=== PATIENT | male | born 1965 | race Caucasian/White ===

== ENCOUNTER 2016-09-06 10:25 | Emergency (ER) | payer BC ==
[2016-09-06 10:47] VITALS: RESP 16
--- NOTE | 2016-09-06 11:10 | ED ---
Male Urogenital HPI - General Chief complaint: Urogenital Stated complaint: cant urinate Time Seen by Provider: 09/06/16 10:53 Source: patient, RN notes reviewed Mode of arrival: wheelchair Limitations: no limitations - History of Present Illness Initial comments: 51-year-old male presents emergency Department chief complaint unable to urinate. Patient states he has not urinated well since last night. He states the dizziness hour and had small amount come out. Patient states that he's had intense lower abdominal symptoms feeling that he needs to urinate. Patient denies fever, chills, chest pain or shortness breath. Patient states that he was prepping for a colonoscopy last night. Patient states is scheduled at 1:00 today. Patient states that he felt very good bowel movements. States his waves of pain in his lower abdomen have continued. He states he feels that he is having problems with his prostate. - Related Data Home Medications Medication Instructions Recorded Confirmed Lisinopril [Lisinopril] 40 mg PO DAILY@1200 05/12/15 09/06/16 Polyethylene Glycol 3350 [Miralax] 17 gm PO BID PRN 09/04/16 09/06/16 Tamsulosin [Flomax] 0.4 mg PO DAILY 09/04/16 09/06/16 Bisac/NaCl/Nahco3/KCl/Peg 3350 1 kit PO ONCE PRN 09/06/16 09/06/16 [Gavilyte-H and Bisacodyl Kit] Previous Rx's Medication Instructions Recorded Ciprofloxacin HCl [Cipro] 500 mg PO Q12HR #20 tablet 09/06/16 Phenazopyridine [Pyridium] 200 mg PO TID #6 tablet 09/06/16 Allergies Allergy/AdvReac Type Severity Reaction Status Date / Time No Known Allergies Allergy Verified 09/06/16 11:28 Review of Systems ROS Statement: Those systems with pertinent positive or pertinent negative responses have been documented in the HPI. ROS Other: All systems not noted in ROS Statement are negative. Past Medical History Past Medical History: Hypertension, Liver Disease, Prostate Disorder, Skin Disorder Additional Past Medical History / Comment(s): CIRRHOSIS, BPH, PSORIASIS, THROMBOCYTOPENIA. , CONSTIPATION. History of Any Multi-Drug Resistant Organisms: None Reported Additional Past Surgical History / Comment(s): wisdom teeth removal with MAC, colonoscopy, liver biopsy Past Anesthesia/Blood Transfusion Reactions: No Reported Reaction Past Psychological History: No Psychological Hx Reported Smoking Status: Never smoker Past Alcohol Use History: None Reported, Rare Additional Past Alcohol Use History / Comment(s): QUIT ALCOHOL 1 AND 1/2 YRS AGO. Past Drug Use History: None Reported - Past Family History Father Family Medical History: Cancer, Diabetes Mellitus Additional Family Medical History / Comment(s): MULTIPLE MYELOMA General Exam Limitations: no limitations General appearance: alert, in no apparent distress Head exam: Present: atraumatic, normocephalic, normal inspection Neck exam: Present: normal inspection, full ROM. Absent: tenderness, meningismus, lymphadenopathy Respiratory exam: Present: normal lung sounds bilaterally. Absent: respiratory distress, wheezes, rales, rhonchi, stridor Cardiovascular Exam: Present: regular rate, normal rhythm, normal heart sounds. Absent: systolic murmur, diastolic murmur, rubs, gallop, clicks GI/Abdominal exam: Present: soft, tenderness (Mild tenderness lower abdomen), normal bowel sounds. Absent: distended, guarding, rebound, rigid Back exam: Absent: CVA tenderness (R), CVA tenderness (L) Skin exam: Present: warm, dry, intact, normal color. Absent: rash Course Vital Signs 09/06/16 10:34 Temperature 98.1 F Pulse Rate 80 Respiratory 16 Rate Blood Pressure 120/73 O2 Sat by Pulse 97 Oximetry Medical Decision Making - Medical Decision Making 51-year-old male presented for low abdominal pain and urgency to urinate. CT does show severe mural thickening of the bladder wall. Patient may have a UTI though this is concerning for possible bladder cancer. I didn't of the patient admission. He states he wants to go have his colonoscopy and wants to be discharged at this time. Patient we discharged at end oh. I urged him that he absolutely needs to see urologist Dr. Hennessy and to follow-up with Dr. Travis in which she seen in the past for his thrombocytopenia and leukopenia. Patient agrees to plan. - Lab Data Result diagrams: 09/06/16 11:14 09/06/16 11:14 Lab Results 09/06/16 09/06/16 09/06/16 Range/Units 11:14 11:14 11:14 WBC 3.1 L (3.8-10.6) k/uL RBC 4.21 L (4.30-5.90) m/uL Hgb 12.1 L D (13.0-17.5) gm/dL Hct 36.6 L (39.0-53.0) % MCV 86.9 (80.0-100.0) fL MCH 28.8 (25.0-35.0) pg MCHC 33.1 (31.0-37.0) g/dL RDW 15.9 H (11.5-15.5) % Plt Count 37 L* D (150-450) k/uL Neutrophils % 66 % Lymphocytes % 23 % Monocytes % 7 % Eosinophils % 1 % Basophils % 1 % Neutrophils # 2.0 (1.3-7.7) k/uL Lymphocytes # 0.7 L (1.0-4.8) k/uL Monocytes # 0.2 (0-1.0) k/uL Eosinophils # 0.0 (0-0.7) k/uL Basophils # 0.0 (0-0.2) k/uL Manual Slide Review Performed RBC Morphology Normal Sodium 142 (137-145) mmol/L Potassium 4.7 (3.5-5.1) mmol/L Chloride 104 (98-107) mmol/L Carbon Dioxide 25 (22-30) mmol/L Anion Gap 13 mmol/L BUN 10 (9-20) mg/dL Creatinine 0.78 (0.66-1.25) mg/dL Est GFR (MDRD) Af Amer >60 (>60 ml/min/1.73 sqM) Est GFR (MDRD) Non-Af >60 (>60 ml/min/1.73 sqM) Glucose 101 H (74-99) mg/dL Calcium 9.7 (8.4-10.2) mg/dL Total Bilirubin 1.0 (0.2-1.3) mg/dL AST 55 (17-59) U/L ALT 67 (21-72) U/L Alkaline Phosphatase 80 (38-126) U/L Total Protein 8.2 (6.3-8.2) g/dL Albumin 4.5 (3.5-5.0) g/dL Urine Color Yellow Urine Appearance Cloudy (Clear) Urine pH 7.5 (5.0-8.0) Ur Specific [place] 1.021 (1.001-1.035) Urine Protein 3+ H (Negative) Urine Glucose (UA) Trace H (Negative) Urine Ketones Trace H (Negative) Urine Blood Moderate H (Negative) Urine Nitrate Negative (Negative) Urine Bilirubin Negative (Negative) Urine Urobilinogen <2.0 (<2.0) mg/dL Ur Leukocyte Esterase Trace H (Negative) Urine RBC >182 H (0-5) /hpf Urine WBC 32 H (0-5) /hpf Urine Mucus Rare H (None) /hpf Disposition Clinical Impression: Thrombocytopenia, UTI (urinary tract infection), Bladder wall thickening, Hematuria, Abdominal pain Disposition: HOME SELF-CARE Condition: Stable Instructions: Urinary Tract Infection in Men (ED) Additional Instructions: Please follow-up with urologist as discussed for your bladder wall thickening to rule out bladder cancer. 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 Prescriptions: Ciprofloxacin HCl [Cipro] 500 mg PO Q12HR #20 tablet Phenazopyridine [Pyridium] 200 mg PO TID #6 tablet Referrals: Juarez Kendrick MD [Primary Care Provider] - 1-2 days Galindo Hennessy MD [STAFF PHYSICIAN] - 1-2 days Josr Travis MD [STAFF PHYSICIAN] - 1-2 days Time of Disposition: 13:00
[2016-09-06] MEDS: SODIUM CHLORIDE 0.9% 1,000 ML IV STA (11:11)
[2016-09-06] MEDS: MORPHINE SULFATE 4 MG/ML SYRINGE IVP STA ×2 (11:18→12:00)
[2016-09-06 11:34] LABS: Appearance,Urine Cloudy (Clear); Bilirubin,Urine Negative (Negative); Glucose,Urine (UA) Trace (Negative); Ketones,Urine Trace (Negative); Leukocyte Esterase,Urine Trace (Negative); Mucus,Urine Rare /hpf; Nitrite,Urine Negative (Negative); PH, Urine 7.5 (5.0-8.0); Particle Count 5311; Protein,Urine 3+ (Negative); RBC,Urine >182 /hpf (0-5); Specific Gravity,Urine 1.021 (1.001-1.035); UA Billing (MACRO vs. MICRO) MICRO; Urobilinogen,Urine <2.0 mg/dL (<2.0); WBC,Urine 32 /hpf (0-5)
[2016-09-06 11:36] LABS: Basophils % (A) 1 %; CH 28.3; CHCM 32.6; Eosinophils % (A) 1 %; HCT 36.6 % (39.0-53.0); HDW 2.85; Luc # (Auto) 0.09; Luc % (Auto) 3; Lymphocytes # (A) 0.7 k/uL (1.0-4.8); Lymphocytes % (A) 23 %; MCH 28.8 pg (25.0-35.0); MCHC 33.1 g/dL (31.0-37.0); MCV 86.9 fL (80.0-100.0); Mean Platelet Volume 7.2; Monocytes # (A) 0.2 k/uL (0-1.0); Monocytes % (A) 7 %; Neutrophils % (A) 66 %; RBC 4.21 m/uL (4.30-5.90); RDW 15.9 % (11.5-15.5); WBC 3.1 k/uL (3.8-10.6); WBC (Perox) 3.01
[2016-09-06 11:42] LABS: ALT 67 U/L (21-72); AST 55 U/L (17-59); Alkaline Phosphatase 80 U/L (38-126); Anion Gap 13 mmol/L; Blood Urea Nitrogen 10 mg/dL (9-20); Calcium 9.7 mg/dL (8.4-10.2); Carbon Dioxide 25 mmol/L (22-30); Chloride 104 mmol/L (98-107); Glucose 101 mg/dL (74-99); Non-African American GFR(MDRD) >60 (>60 ml/min/1.73 sqM); Potassium 4.7 mmol/L (3.5-5.1); Sodium 142 mmol/L (137-145); Total Protein 8.2 g/dL (6.3-8.2)
--- NOTE | 2016-09-06 11:51 | XR ---
Abdomen HISTORY: Abdominal pain, unable to urinate From view of the abdomen correlated to prior abdomen and CT 02 July 2016 No interval change is evident. Lung bases are clear. No bowel obstruction or pneumoperitoneum. Probab le vascular calcifications within the pelvis. Spleen thought to be enlarged as described on prior CT. IMPRESSION: No acute abnormalities evident. Splenomegaly. See CT report 02 July 2016, abnormal bl adder noted
[2016-09-06 12:14] LABS: Manual Review Performed
[2016-09-06 12:16] LABS: RBC Morphology Normal
--- NOTE | 2016-09-06 12:28 | CT ---
EXAMINATION TYPE: CT abdomen pelvis wo con DATE OF EXAM: 09/06/2016 12:20 PM COMPARISON: 07/02/2016 HISTORY: Patient complains of penile pain and difficulty urinating. CT DLP: 542 mGycm FINDINGS: LUNG BASES: No evidence for nodule. No evidence for infiltrate. LIVER/GB: Small gallstone is noted. No space-occupying hepatic lesion. PANCREAS: No pancreatic mass identified. No inflammatory process seen. SPLEEN: No evidence for splenomegaly. No intrasplenic lesions seen. ADRENALS: No adrenal nodules identified. No evidence for thickening. KIDNEYS: No evidence for renal mass. No nephrolithiasis. No hydronephrosis. Severe urinary bladder wa ll thickening is noted diffusely throughout the urinary bladder. There is a perivesicular strandy att enuation identified. Small amount of air is seen within the lumen of the urinary bladder which may be secondary to recent catheterization. BOWEL: Appendix has a normal appearance. No evidence of bowel obstruction. No inflammatory process. Lymph nodes: No evidence for adenopathy greater than 1 cm. Abdominal aorta: Atheromatous changes seen. No evidence for aneurysm. Genital organs: There is bilateral thickening of the seminal vesicles. Prostate calcifications are id entified. Other: No significant abnormality. IMPRESSION: 1. SEVERE MURAL WALL THICKENING INVOLVING URINARY BLADDER MAY REFLECT UNDERLYING CYSTITIS. NEOPLASM I S NOT EXCLUDED. PERIVESICLE STRANDY ATTENUATION IS NOTED WELL. 2. Thickening is also noted of the seminal vesicles.
[2016-09-06] MEDS: DIAZEPAM 5 MG/ML 2 ML SYRINGE IVP STA (12:53)
[2016-09-06 13:07] VITALS: BP 120/68; PULSE 78; TEMP 97.8
[2016-09-06 16:30] LABS: HGB 12.1 gm/dL (13.0-17.5)
== END 2016-09-06 13:06 | disposition home or self-care (01) ==
LOC: EC 10:25
DX: N39.0 Urinary tract infection, site not specified (principal); D69.6 Thrombocytopenia, unspecified; R31.9 Hematuria, unspecified; Z79.899 Other long term (current) drug therapy; I10 Essential (primary) hypertension; N40.0 Benign prostatic hyperplasia without lower urinary tract symptoms; N32.89 Other specified disorders of bladder
CPT/HCPCS: 51798; 36415; 80053; 85025; 81001; 87086; 74000; 74176; 96374; 96375; 96376; 96361; 99284; J2270; J3360

== ENCOUNTER 2016-09-06 13:16 | Day surgery (SDC) | payer BC ==
[2016-09-04 09:40] VITALS: BMI 19.3
[~2016-09-06 13:16] MED LIST: LACTATED RINGERS 1,000 ML IV SCH; LIDOCAINE 1% 20 ML VIAL (10MG/ML) FOR IV START INTRADERMA PRN
[2016-09-06 13:35] VITALS: TEMP 97.9
[2016-09-06] MEDS ORDERED: PROPOFOL 10 MG/ML 20 ML VIAL IV ONE (13:48)
[2016-09-06 13:59] LABS: INR 1.3 (<1.1); Prothrombin Time 12.7 sec (9.0-12.0)
[2016-09-06 14:05] LABS: Bilirubin, Delta 0.4 mg/dL (0.0-0.2); Total Protein 8.1 g/dL (6.3-8.2)
[2016-09-06 14:16] VITALS: RESP 16
[2016-09-06 14:45] VITALS: BP 124/86; PULSE 72
--- NOTE | 2016-09-07 08:39 | PCN ---
DATE OF PROCEDURE: 09/06/2016 PROCEDURE: 1. Esophagogastroduodenoscopy. 2. Total colonoscopy. PREOPERATIVE DIAGNOSES: Epigastric pain, rectal bleeding and change in bowel habits. POSTOPERATIVE DIAGNOSES: 1. Gastritis consistent with portal gastropathy with no evidence of esophageal or gastric varices or bleeding. 2. Diverticulosis of the colon with no evidence of acute diverticulitis or strictures or any polyps. 3. Low-grade internal hemorrhoids without bleeding at the time of this exam. PREPARATION: HalfLytely prep. SEDATION: Provided by Anesthesia. BRIEF CLINICAL HISTORY: The patient is a 51-year-old male who was hospitalized last June because of rectal bleeding and anemia with a hemoglobin of 8. He was also having diarrhea which has since subsided. The patient had negative stool studies and CT of the abdomen was normal. The patient has had no rectal bleeding since that time. He was evaluated in the office earlier this month and schedule for these evaluations today. He has history of cryptogenic cirrhosis. His liver biopsy was done in May 2015 and his last MRI was in April 2015. He had prior upper endoscopy and colonoscopy in October 2013 and apparently he had a polyp removed from his colon. The patient was scheduled for this evaluation to assess for colon neoplasia and to evaluate for esophageal varices or other pathology. The patient has significant thrombocytopenia. PROCEDURE: With the patient on his left lateral decubitus position and after informed consent and adequate sedation, I passed the [id number] video upper endoscope through the cricopharyngeus down the esophagus. The esophagus appeared healthy with no obvious erosions, ulcers, mucosal tears, varices or bleeding. The endoscope was then passed into the stomach which was insufflated with air and inspected in detail including the retroflex view and the cardia. There was mottling, erythema and submucosal hemorrhage consistent with gastritis, likely portal gastropathy, but there was no bleeding, no gastric varices or any ulcers. Pyloric channel, duodenal bulb, postbulbar area, and descending duodenum appeared within normal limits. No biopsies were obtained. Then I proceeded with the colonoscopy. The perianal area did not show any fissures or fistulas. There were no masses felt on digital rectal examination. The Olympus CF-Q 160 L video colonoscope was then inserted in the rectum in the usual fashion and advanced to the cecum. There were multiple diverticular orifices seen scattered in the sigmoid and some on the right side. They were mostly small with no evidence of acute diverticulitis or strictures. No polyps or tumors were seen. I retroflexed the endoscope in the rectum before the endoscope was withdrawn. Low-grade internal hemorrhoids were noted, but there was no bleeding. The patient tolerated the procedure well. PLAN: The patient was reassured. He will follow up in the office next month as scheduled and he will follow up with you as planned. I anticipate repeating his colonoscopy in 5 years and his upper endoscopy in around 2 years. Will keep you updated on his progress.
== END 2016-09-06 15:16 | disposition home or self-care (01) ==
LOC: ORWHC2ENDO 13:16
DX: K29.70 Gastritis, unspecified, without bleeding (principal); K57.30 Diverticulosis of large intestine without perforation or abscess without bleeding; K64.8 Other hemorrhoids; Z86.010 Personal history of colon polyps; K74.69 Other cirrhosis of liver; D69.6 Thrombocytopenia, unspecified; I10 Essential (primary) hypertension; N40.0 Benign prostatic hyperplasia without lower urinary tract symptoms; Z79.2 Long term (current) use of antibiotics; Z79.899 Other long term (current) drug therapy
CPT/HCPCS: 80076; 85610; 82105; 82390; 45378; 43235; J2704; 36415; 51798; 74000; 74176; 80053; 81001; 85025; 87086; 96361; 96374; 96375; 96376; 99284

== ENCOUNTER 2017-07-03 14:44 | Emergency (ER) | payer BC ==
[2017-07-03] MEDS ORDERED: LIDOCAINE URO-JET JELLY 2% 5 ML KIT URETHRAL ONE (15:41)
--- NOTE | 2017-07-03 16:00 | ED ---
General Adult HPI - General Chief complaint: Abdominal Pain Stated complaint: Abd Pain Time Seen by Provider: 07/03/17 14:50 Source: patient, EMS, RN notes reviewed Mode of arrival: EMS Limitations: no limitations - History of Present Illness Initial comments: 52-year-old male presents to the emergency Department chief complaint of inability to urinate. Patient states he's been unable to go. He is a poor historian he is very focused on receiving pain medication. He states he just has a lot of pain he has a history of prostate issues. Other than and unable to give a history due to the patient's discomfort. Patient denies any fever chills nausea vomiting. - Related Data Home Medications Medication Instructions Recorded Confirmed Lisinopril [Lisinopril] 40 mg PO DAILY@1200 05/12/15 07/03/17 Tamsulosin [Flomax] 0.8 mg PO DAILY 09/04/16 07/03/17 Lactulose 10 gm PO BID 07/03/17 07/03/17 Allergies Allergy/AdvReac Type Severity Reaction Status Date / Time No Known Allergies Allergy Verified 07/03/17 15:36 Review of Systems ROS Statement: Those systems with pertinent positive or pertinent negative responses have been documented in the HPI. ROS Other: All systems not noted in ROS Statement are negative. Past Medical History Past Medical History: Hypertension, Liver Disease, Prostate Disorder, Skin Disorder Additional Past Medical History / Comment(s): CIRRHOSIS, BPH, PSORIASIS, THROMBOCYTOPENIA. , CONSTIPATION. History of Any Multi-Drug Resistant Organisms: None Reported Additional Past Surgical History / Comment(s): wisdom teeth removal with MAC, colonoscopy, liver biopsy Past Anesthesia/Blood Transfusion Reactions: No Reported Reaction Past Psychological History: No Psychological Hx Reported Smoking Status: Never smoker Past Alcohol Use History: None Reported, Rare Past Drug Use History: None Reported - Past Family History Father Family Medical History: Cancer, Diabetes Mellitus Additional Family Medical History / Comment(s): MULTIPLE MYELOMA General Exam Limitations: no limitations General appearance: alert, in no apparent distress ENT exam: Present: normal exam, mucous membranes moist Neck exam: Present: normal inspection. Absent: tenderness, meningismus, lymphadenopathy Respiratory exam: Present: normal lung sounds bilaterally. Absent: respiratory distress, wheezes, rales, rhonchi, stridor Cardiovascular Exam: Present: regular rate, normal rhythm, normal heart sounds. Absent: systolic murmur, diastolic murmur, rubs, gallop, clicks GI/Abdominal exam: Present: soft, distended (SUPRAPUBIC area), normal bowel sounds. Absent: tenderness, guarding, rebound, rigid Extremities exam: Present: normal inspection, full ROM, normal capillary refill. Absent: tenderness, pedal edema, joint swelling, calf tenderness Neurological exam: Present: alert, oriented X3 Psychiatric exam: Present: normal affect, normal mood Skin exam: Present: warm, dry, intact, normal color. Absent: rash Course Vital Signs 07/03/17 16:04 Temperature 98.6 F Pulse Rate 120 H Respiratory 20 Rate Blood Pressure 156/86 O2 Sat by Pulse 99 Oximetry Medical Decision Making - Medical Decision Making 52-year-old male presents to the emergency Department chief complaint of inability to urinate. This time the catheter was placed that did relieve some of his discomfort. At this time we are suspicious that this is most likely related to the urinary retention. Even though was mild. This time we discussed close follow-up with his doctor and return parameters. Patient stated he understood and is given plan. All questions have been answered. He will be discharged home. Lab values do appear to be stable compared to previous labs. - Lab Data Result diagrams: 07/03/17 16:27 07/03/17 16:27 Lab Results 07/03/17 07/03/17 07/03/17 Range/Units 16:10 16:27 16:27 WBC 2.7 L (3.8-10.6) k/uL RBC 3.90 L (4.30-5.90) m/uL Hgb 12.4 L (13.0-17.5) gm/dL Hct 37.3 L (39.0-53.0) % MCV 95.8 (80.0-100.0) fL MCH 31.7 (25.0-35.0) pg MCHC 33.1 (31.0-37.0) g/dL RDW 13.4 (11.5-15.5) % Plt Count 33 L* (150-450) k/uL Neutrophils % 73 % Lymphocytes % 20 % Monocytes % 5 % Eosinophils % 1 % Basophils % 0 % Neutrophils # 2.0 (1.3-7.7) k/uL Lymphocytes # 0.5 L (1.0-4.8) k/uL Monocytes # 0.1 (0-1.0) k/uL Eosinophils # 0.0 (0-0.7) k/uL Basophils # 0.0 (0-0.2) k/uL PT (9.0-12.0) sec INR (<1.2) APTT (22.0-30.0) sec Sodium 140 (137-145) mmol/L Potassium 4.0 (3.5-5.1) mmol/L Chloride 108 H (98-107) mmol/L Carbon Dioxide 21 L (22-30) mmol/L Anion Gap 11 mmol/L BUN 6 L (9-20) mg/dL Creatinine 0.70 (0.66-1.25) mg/dL Est GFR (MDRD) Af Amer >60 (>60 ml/min/1.73 sqM) Est GFR (MDRD) Non-Af >60 (>60 ml/min/1.73 sqM) Glucose 114 H (74-99) mg/dL Plasma Lactic Acid Jean (0.7-2.0) mmol/L Calcium 9.3 (8.4-10.2) mg/dL Total Bilirubin 1.1 (0.2-1.3) mg/dL AST 46 (17-59) U/L ALT 53 (21-72) U/L Alkaline Phosphatase 82 (38-126) U/L Total Protein 7.9 (6.3-8.2) g/dL Albumin 4.3 (3.5-5.0) g/dL Amylase 97 (30-110) U/L Urine Color Yellow Urine Appearance Clear (Clear) Urine pH 8.0 (5.0-8.0) Ur Specific [place] 1.003 (1.001-1.035) Urine Protein 1+ H (Negative) Urine Glucose (UA) Negative (Negative) Urine Ketones Negative (Negative) Urine Blood Large H (Negative) Urine Nitrite Negative (Negative) Urine Bilirubin Negative (Negative) Urine Urobilinogen <2.0 (<2.0) mg/dL Ur Leukocyte Esterase Negative (Negative) Urine RBC 2 (0-5) /hpf Urine WBC 2 (0-5) /hpf Urine Bacteria Rare H (None) /hpf Urine Mucus Rare H (None) /hpf 11/15/17 11/15/17 Range/Units 16:27 16:27 WBC (3.8-10.6) k/uL RBC (4.30-5.90) m/uL Hgb (13.0-17.5) gm/dL Hct (39.0-53.0) % MCV (80.0-100.0) fL MCH (25.0-35.0) pg MCHC (31.0-37.0) g/dL RDW (11.5-15.5) % Plt Count (150-450) k/uL Neutrophils % % Lymphocytes % % Monocytes % % Eosinophils % % Basophils % % Neutrophils # (1.3-7.7) k/uL Lymphocytes # (1.0-4.8) k/uL Monocytes # (0-1.0) k/uL Eosinophils # (0-0.7) k/uL Basophils # (0-0.2) k/uL PT 13.1 H (9.0-12.0) sec INR 1.3 H (<1.2) APTT 22.2 (22.0-30.0) sec Sodium (137-145) mmol/L Potassium (3.5-5.1) mmol/L Chloride (98-107) mmol/L Carbon Dioxide (22-30) mmol/L Anion Gap mmol/L BUN (9-20) mg/dL Creatinine (0.66-1.25) mg/dL Est GFR (MDRD) Af Amer (>60 ml/min/1.73 sqM) Est GFR (MDRD) Non-Af (>60 ml/min/1.73 sqM) Glucose (74-99) mg/dL Plasma Lactic Acid Jean 1.4 (0.7-2.0) mmol/L Calcium (8.4-10.2) mg/dL Total Bilirubin (0.2-1.3) mg/dL AST (17-59) U/L ALT (21-72) U/L Alkaline Phosphatase (38-126) U/L Total Protein (6.3-8.2) g/dL Albumin (3.5-5.0) g/dL Amylase (30-110) U/L Urine Color Urine Appearance (Clear) Urine pH (5.0-8.0) Ur Specific [place] (1.001-1.035) Urine Protein (Negative) Urine Glucose (UA) (Negative) Urine Ketones (Negative) Urine Blood (Negative) Urine Nitrite (Negative) Urine Bilirubin (Negative) Urine Urobilinogen (<2.0) mg/dL Ur Leukocyte Esterase (Negative) Urine RBC (0-5) /hpf Urine WBC (0-5) /hpf Urine Bacteria (None) /hpf Urine Mucus (None) /hpf - Radiology Data Radiology results: report reviewed, image reviewed Disposition Clinical Impression: Urinary retention Disposition: HOME SELF-CARE Condition: Stable Instructions: Urinary Retention in Men (ED) Additional Instructions: Please use medication as discussed. Please follow up with family doctor if symptoms have not improved over the next two days. Please return to the emergency room if your symptoms increase or worsen or for any other concerns. Referrals: Juarez Kendrick MD [Primary Care Provider] - 1-2 days Rodolfo Cunningham MD [STAFF PHYSICIAN] - 1-2 days Time of Disposition: 17:49
[2017-07-03] MEDS ORDERED: RX INFO: IV CONTRAST WAS GIVEN 1 EACH MISC MISCELLANE PRN (16:04)
[2017-07-03] MEDS ORDERED: SODIUM CHLORIDE 0.9% 500 ML IV STA (16:04)
[2017-07-03] MEDS ORDERED: HYDROmorphone 1 MG/ML 1 ML SYRINGE IVP STA (16:04)
[2017-07-03] MEDS ORDERED: ONDANSETRON 4 MG/2 ML VIAL IVP STA (16:05)
[2017-07-03 16:16] LABS: Appearance,Urine Clear (Clear); Bacteria,Urine Rare /hpf; Bilirubin,Urine Negative (Negative); Glucose,Urine (UA) Negative (Negative); Ketones,Urine Negative (Negative); Leukocyte Esterase,Urine Negative (Negative); Mucus,Urine Rare /hpf; Nitrite,Urine Negative (Negative); Particle Count 5705; Protein,Urine 1+ (Negative); RBC,Urine 2 /hpf (0-5); Specific Gravity,Urine 1.003 (1.001-1.035); UA Billing (MACRO vs. MICRO) MICRO; Urobilinogen,Urine <2.0 mg/dL (<2.0); WBC,Urine 2 /hpf (0-5)
[2017-07-03 16:40] LABS: Basophils % (A) 0 %; CH 33.1; CHCM 34.7; Eosinophils % (A) 1 %; HCT 37.3 % (39.0-53.0); HDW 2.92; HGB 12.4 gm/dL (13.0-17.5); Luc # (Auto) 0.03; Luc % (Auto) 1; Lymphocytes # (A) 0.5 k/uL (1.0-4.8); Lymphocytes % (A) 20 %; MCH 31.7 pg (25.0-35.0); MCHC 33.1 g/dL (31.0-37.0); MCV 95.8 fL (80.0-100.0); Mean Platelet Volume 8.1; Monocytes # (A) 0.1 k/uL (0-1.0); Monocytes % (A) 5 %; Neutrophils % (A) 73 %; RDW 13.4 % (11.5-15.5); WBC 2.7 k/uL (3.8-10.6); WBC (Perox) 2.72
[2017-07-03 16:49] LABS: ALT 53 U/L (21-72); AST 46 U/L (17-59); Alkaline Phosphatase 82 U/L (38-126); Amylase 97 U/L (30-110); Anion Gap 11 mmol/L; Blood Urea Nitrogen 6 mg/dL (9-20); Calcium 9.3 mg/dL (8.4-10.2); Carbon Dioxide 21 mmol/L (22-30); Chloride 108 mmol/L (98-107); Glucose 114 mg/dL (74-99); Non-African American GFR(MDRD) >60 (>60 ml/min/1.73 sqM); Sodium 140 mmol/L (137-145); Total Bilirubin 1.1 mg/dL (0.2-1.3); Total Protein 7.9 g/dL (6.3-8.2)
--- NOTE | 2017-07-03 17:24 | CT ---
EXAMINATION TYPE: CT abdomen pelvis w con DATE OF EXAM: 07/03/2017 COMPARISON: CT abdomen and pelvis September 06, 2016 HISTORY: Hematuria, abdominal pain CT DLP: 948 mGycm, Automated Exposure Control for Dose Reduction was Utilized. CONTRAST: CT scan of the abdomen and pelvis is performed without oral but with IV Contrast, patient injected wi th 100 mL of Omnipaque 300. FINDINGS: LUNG BASES: No significant abnormality is appreciated. LIVER/GB: Tiny dependent density is consistent with small gallstone unchanged from prior. PANCREAS: No significant abnormality is seen. SPLEEN: Splenomegaly is redemonstrated measuring 16.5 cm on long axis coronal image 45. ADRENALS: No significant abnormality is seen. KIDNEYS: De Anda catheter is seen within bladder which is decompressed and thus suboptimally evaluated. There is symmetric cortical medullary uptake and excretion from both kidneys without evidence of con cerning renal mass or hydronephrosis bilaterally. There are few pelvic phleboliths redemonstrated. BOWEL: Evaluation of bowel is suboptimal secondary to lack of enteric contrast. No suspicious small o r large bowel dilatation is seen. PROSTATE/SEMINAL VESICLES: No gross abnormality seen. LYMPH NODES: No greater than 1cm abdominal or pelvic lymph nodes are appreciated. OSSEOUS STRUCTURES: Osseous structures are slightly demineralized. Posterior disc herniation L4-L5 le nuha as seen on sagittal image 4 confirmed axial image 42 effacing anterior thecal sac. OTHER: No significant additional abnormality is seen. IMPRESSION: No significant finding is seen to account for patient's clinical symptoms. Suboptimal ev aluation of bladder due to catheterization. Marked splenomegaly is noted and may warrant further clin ical workup.
[2017-07-03 17:42] LABS: INR 1.3 (<1.2); Partial Thromboplastin Time 22.2 sec (22.0-30.0); Prothrombin Time 13.1 sec (9.0-12.0)
[2017-07-03 18:21] VITALS: BP 115/60; PULSE 50; RESP 18; TEMP 98.5
[2017-07-03] MEDS ORDERED: HYDROcodone/APAP 5-325MG 1 EACH TAB PO STA (18:22)
== END 2017-07-03 18:38 | disposition home or self-care (01) ==
LOC: EC 14:44
DX: R33.9 Retention of urine, unspecified (principal); I10 Essential (primary) hypertension; N42.9 Disorder of prostate, unspecified; Z79.899 Other long term (current) drug therapy
CPT/HCPCS: 36415; 80053; 82150; 83605; 85025; 85610; 85730; 81001; 87040; 87086; 74177; 99284; 96374; 96375; 96361 ×2; 51701; J2405; J1170; Q9967

== ENCOUNTER → 2019-09-07 | Outpatient (CLI) | payer BC ==
--- NOTE | 2019-09-07 21:20 | MR ---
EXAMINATION TYPE: MR liver wo/w con DATE OF EXAM: 09/07/2019 COMPARISON: CT scan 07/03/2017, MRI 05/05/2015 HISTORY: Cryptogenic Cirrhosis /Recheck CONTRAST: Standard multiplanar, multisequence MRI departmental protocol utilizing 6.5 mL intravenous Gadavist g adolinium contrast. FINDINGS: Exam limited by artifact. LIVER: The liver appears within normal limits in size. There is no suspicious intrahepatic mass or in trahepatic ductal dilatation seen. No worrisome rapidly enhancing mass with rapid washout is seen to suggest focal HCC. Hepatic veins are patent draining into IVC. There is patent portal vein centrally at level of danika hepatus. Liver is heterogeneous in signal pattern likely on the basis of chronic he patocellular disease. OTHER: The lung bases are grossly clear. Spleen remains mildly enlarged measuring 13 cm on long axis. There is trace pericholecystic fluid near gallbladder fundus redemonstrated. Tiny cholelithiasis aga in noted. The pancreas is felt upper limits of normal in size. Both adrenal glands are normal in size . There is no concerning renal mass or hydronephrosis present bilaterally. Subcentimeter hypodensitie s within both kidneys are too small to characterize. No concerning abdominal ascites is seen. No susp icious bowel dilatation is noted. Osseous structures are intact. IMPRESSION: 1. Diffuse heterogeneous pattern to the liver with splenomegaly in a pattern compatible with hepatic cirrhosis. No intrahepatic mass. 2. Cholelithiasis correlate clinically with ultrasound if there is concern for cholecystitis.
== END | disposition home or self-care (01) ==
LOC: RADMRIMAIN 14:48
PROVIDERS: ATTEND Physician Assistant
DX: R16.1 Splenomegaly, not elsewhere classified (principal)
CPT/HCPCS: 74183; A9585

== ENCOUNTER 2020-08-12 23:52 | Emergency (ER) | payer BC ==
[2020-08-13 00:01] VITALS: BP 135/79; RESP 18; TEMP 98.2
[2020-08-13] MEDS ORDERED: HYDROmorphone 0.5 MG/0.5 ML SYRINGE IVP STA ×2 (00:08→00:36)
--- NOTE | 2020-08-13 00:12 | ED ---
Abdominal Pain HPI - General Chief Complaint: Abdominal Pain Stated Complaint: GI Bleed Time Seen by Provider: 08/12/20 23:53 Source: patient, EMS Mode of arrival: EMS Limitations: no limitations - History of Present Illness Initial Comments: This patient is a 55-year-old man who presents with complaint that he is having suprapubic discomfort that radiates towards the groin. Patient states this has been intermittent going back for a few weeks now. Patient states that he was told that he had a urinary tract infection and did complete 2 courses of c iprofloxacin. The patient states that the pain was recurring tonight and it felt like he was having a hard time urinating. He did feel a little better after urinating but states that it is difficult to initiate. Patient is concerned about possible kidney stone. MD Complaint: abdominal pain -: hour(s) Location: suprapubic Radiation: other (groin) Migration to: no migration Severity: moderate Quality: aching Consistency: constant Improves With: other (Urination) Worsens With: nothing - Related Data Home Medications Medication Instructions Recorded Confirmed lisinopriL [Lisinopril] 40 mg PO DAILY@1200 05/12/15 07/03/17 Tamsulosin [Flomax] 0.8 mg PO DAILY 09/04/16 07/03/17 Lactulose 10 gm PO BID 07/03/17 07/03/17 Previous Rx's Medication Instructions Recorded Hydrocodone/Acetaminophen [[place] 1 each PO Q6HR PRN #20 tab 07/03/17 5-325] Doxycycline [Vibramycin] 100 mg PO BID 1 Days #28 capsule 08/13/20 Allergies Allergy/AdvReac Type Severity Reaction Status Date / Time No Known Allergies Allergy Verified 07/03/17 15:36 Review of Systems ROS Statement: Those systems with pertinent positive or pertinent negative responses have been documented in the HPI. ROS Other: All systems not noted in ROS Statement are negative. Constitutional: Denies: fever, chills, weakness Respiratory: Denies: cough, dyspnea Cardiovascular: Denies: chest pain, palpitations, orthopnea, edema, syncope Gastrointestinal: Reports: as per HPI, abdominal pain. Denies: nausea, vomiting, diarrhea, constipation, melena, hematochezia Genitourinary: Reports: as per HPI, urgency. Denies: dysuria, frequency, hematuria, discharge, testicular pain, testicular mass Musculoskeletal: Denies: back pain Skin: Denies: rash Neurological: Denies: headache, weakness, numbness Past Medical History Past Medical History: Hypertension, Liver Disease, Prostate Disorder, Skin Disorder Additional Past Medical History / Comment(s): CIRRHOSIS, BPH, PSORIASIS, THROMBOCYTOPENIA. , CONSTIPATION. History of Any Multi-Drug Resistant Organisms: None Reported Additional Past Surgical History / Comment(s): wisdom teeth removal with MAC, colonoscopy, liver biopsy Past Anesthesia/Blood Transfusion Reactions: No Reported Reaction Past Psychological History: No Psychological Hx Reported Smoking Status: Never smoker Past Alcohol Use History: None Reported, Rare Past Drug Use History: None Reported - Past Family History Father Family Medical History: Cancer, Diabetes Mellitus Additional Family Medical History / Comment(s): MULTIPLE MYELOMA General Exam Limitations: no limitations General appearance: alert, in no apparent distress Head exam: Present: atraumatic, normocephalic Eye exam: Present: normal appearance. Absent: scleral icterus, conjunctival injection ENT exam: Present: normal oropharynx Neck exam: Present: normal inspection Respiratory exam: Present: normal lung sounds bilaterally. Absent: respiratory distress, wheezes, rales, rhonchi, stridor Cardiovascular Exam: Present: regular rate, normal rhythm, normal heart sounds. Absent: systolic murmur, diastolic murmur, rubs, gallop GI/Abdominal exam: Present: soft. Absent: distended, tenderness, guarding, rebound, rigid, mass Extremities exam: Present: normal inspection, normal capillary refill. Absent: pedal edema, calf tenderness Back exam: Present: normal inspection. Absent: CVA tenderness (R), CVA tender ness (L) Neurological exam: Present: alert Skin exam: Present: warm, dry, intact, normal color. Absent: rash Course Vital Signs 08/12/20 08/13/20 23:54 02:29 Temperature 98.2 F Pulse Rate 100 89 Respiratory 18 18 Rate Blood Pressure 135/79 O2 Sat by Pulse 97 98 Oximetry Medical Decision Making - Medical Decision Making Patient's 55-year-old man presenting with suprapubic pain and is found to have evidence of infection urine. Suspect this is probably prostatitis and that he has had treatment failure with Cipro. Urine culture is sent and patient will be treated with doxycycline. He is feeling better here following medication. We discussed appropriate further care and follow-up as well as return parameters. - Lab Data Result diagrams: 08/13/20 00:18 08/13/20 00:18 Lab Results 08/13/20 08/13/20 08/13/20 Range/Units 00:18 00:18 00:18 WBC 2.5 L (3.8-10.6) k/uL RBC 3.28 L (4.30-5.90) m/uL Hgb 10.7 L (13.0-17.5) gm/dL Hct 30.1 L (39.0-53.0) % MCV 91.9 (80.0-100.0) fL MCH 32.6 (25.0-35.0) pg MCHC 35.5 (31.0-37.0) g/dL RDW 13.0 (11.5-15.5) % Plt Count 30 L (150-450) k/uL MPV 8.1 Neutrophils % 56 % Lymphocytes % 31 % Monocytes % 8 % Eosinophils % 2 % Basophils % 1 % Neutrophils # 1.4 (1.3-7.7) k/uL Lymphocytes # 0.8 L (1.0-4.8) k/uL Monocytes # 0.2 (0-1.0) k/uL Eosinophils # 0.1 (0-0.7) k/uL Basophils # 0.0 (0-0.2) k/uL Manual Slide Review Performed Sodium 137 (137-145) mmol/L Potassium 4.4 (3.5-5.1) mmol/L Chloride 109 H (98-107) mmol/L Carbon Dioxide 24 (22-30) mmol/L Anion Gap 4 mmol/L BUN 11 (9-20) mg/dL Creatinine 0.61 L (0.66-1.25) mg/dL Est GFR (CKD-EPI)AfAm >90 (>60 ml/min/1.73 sqM) Est GFR (CKD-EPI)NonAf >90 (>60 ml/min/1.73 sqM) Glucose 93 (74-99) mg/dL Plasma Lactic Acid Jean 1.6 (0.7-2.0) mmol/L Calcium 9.3 (8.4-10.2) mg/dL Total Bilirubin 1.1 (0.2-1.3) mg/dL AST 36 (17-59) U/L ALT 20 (4-49) U/L Alkaline Phosphatase 72 (38-126) U/L Total Protein 7.1 (6.3-8.2) g/dL Albumin 3.4 L (3.5-5.0) g/dL Amylase 119 H (30-110) U/L Lipase 282 (23-300) U/L Urine Color Urine Appearance (Clear) Urine pH (5.0-8.0) Ur Specific [place] (1.001-1.035) Urine Protein (Negative) Urine Glucose (UA) (Negative) Urine Ketones (Negative) Urine Blood (Negative) Urine Nitrite (Negative) Urine Bilirubin (Negative) Urine Urobilinogen (<2.0) mg/dL Ur Leukocyte Esterase (Negative) Urine RBC (0-5) /hpf Urine WBC (0-5) /hpf Urine Mucus (None) /hpf 08/13/20 Range/Units 00:27 WBC (3.8-10.6) k/uL RBC (4.30-5.90) m/uL Hgb (13.0-17.5) gm/dL Hct (39.0-53.0) % MCV (80.0-100.0) fL MCH (25.0-35.0) pg MCHC (31.0-37.0) g/dL RDW (11.5-15.5) % Plt Count (150-450) k/uL MPV Neutrophils % % Lymphocytes % % Monocytes % % Eosinophils % % Basophils % % Neutrophils # (1.3-7.7) k/uL Lymphocytes # (1.0-4.8) k/uL Monocytes # (0-1.0) k/uL Eosinophils # (0-0.7) k/uL Basophils # (0-0.2) k/uL Manual Slide Review Sodium (137-145) mmol/L Potassium (3.5-5.1) mmol/L Chloride (98-107) mmol/L Carbon Dioxide (22-30) mmol/L Anion Gap mmol/L BUN (9-20) mg/dL Creatinine (0.66-1.25) mg/dL Est GFR (CKD-EPI)AfAm (>60 ml/min/1.73 sqM) Est GFR (CKD-EPI)NonAf (>60 ml/min/1.73 sqM) Glucose (74-99) mg/dL Plasma Lactic Acid Jean (0.7-2.0) mmol/L Calcium (8.4-10.2) mg/dL Total Bilirubin (0.2-1.3) mg/dL AST (17-59) U/L ALT (4-49) U/L Alkaline Phosphatase (38-126) U/L Total Protein (6.3-8.2) g/dL Albumin (3.5-5.0) g/dL Amylase (30-110) U/L Lipase (23-300) U/L Urine Color Yellow Urine Appearance Clear (Clear) Urine pH 6.5 (5.0-8.0) Ur Specific [place] 1.009 (1.001-1.035) Urine Protein Negative (Negative) Urine Glucose (UA) Negative (Negative) Urine Ketones Negative (Negative) Urine Blood Moderate H (Negative) Urine Nitrite Negative (Negative) Urine Bilirubin Negative (Negative) Urine Urobilinogen <2.0 (<2.0) mg/dL Ur Leukocyte Esterase Moderate H (Negative) Urine RBC 29 H (0-5) /hpf Urine WBC 21 H (0-5) /hpf Urine Mucus Rare H (None) /hpf - EKG Data -: EKG Interpreted by Sd EKG shows normal: sinus rhythm, axis (Left axis deviation), intervals (Normal), QRS complexes (Normal) Rate: tachycardia (Rate 115 bpm) Interpretation: nonspecific ST-T wave changes Disposition Clinical Impression: Abdominal pain, Prostatitis Disposition: HOME SELF-CARE Condition: Good Instructions (If sedation given, give patient instructions): Urinary Tract Infection in Men (ED), Abdominal Pain (ED) Prescriptions: Doxycycline [Vibramycin] 100 mg PO BID 1 Days #28 capsule Is patient prescribed a controlled substance at d/c from ED?: No Referrals: Avni Riggins DO [Primary Care Provider] - 1-2 days
[2020-08-13 00:25] LABS: Basophils % (A) 1 %; Eosinophils # (A) 0.1 k/uL (0-0.7); Eosinophils % (A) 2 %; HCT 30.1 % (39.0-53.0); HGB 10.7 gm/dL (13.0-17.5); Lymphocytes # (A) 0.8 k/uL (1.0-4.8); Lymphocytes % (A) 31 %; MCH 32.6 pg (25.0-35.0); MCHC 35.5 g/dL (31.0-37.0); MCV 91.9 fL (80.0-100.0); Mean Platelet Volume 8.1; Monocytes # (A) 0.2 k/uL (0-1.0); Monocytes % (A) 8 %; Neutrophils # (A) 1.4 k/uL (1.3-7.7); Neutrophils % (A) 56 %; RBC 3.28 m/uL (4.30-5.90); WBC 2.5 k/uL (3.8-10.6)
[2020-08-13 00:41] LABS: Platelet Count 30 k/uL (150-450)
[2020-08-13 00:50] LABS: ALT 20 U/L (4-49); AST 36 U/L (17-59); African American GFR (CKD) >90 (>60 ml/min/1.73 sqM); Albumin 3.4 g/dL (3.5-5.0); Alkaline Phosphatase 72 U/L (38-126); Amylase 119 U/L (30-110); Anion Gap 4 mmol/L; Blood Urea Nitrogen 11 mg/dL (9-20); Calcium 9.3 mg/dL (8.4-10.2); Carbon Dioxide 24 mmol/L (22-30); Chloride 109 mmol/L (98-107); Glucose 93 mg/dL (74-99); Lipase 282 U/L (23-300); Non-African American GFR(CKD) >90 (>60 ml/min/1.73 sqM); Potassium 4.4 mmol/L (3.5-5.1); Sodium 137 mmol/L (137-145); Total Bilirubin 1.1 mg/dL (0.2-1.3); Total Protein 7.1 g/dL (6.3-8.2)
[2020-08-13 01:29] LABS: Appearance,Urine Clear (Clear); Bilirubin,Urine Negative (Negative); Blood,Urine Moderate (Negative); Color,Urine Yellow; Glucose,Urine (UA) Negative (Negative); Ketones,Urine Negative (Negative); Leukocyte Esterase,Urine Moderate (Negative); Mucus,Urine Rare /hpf; Nitrite,Urine Negative (Negative); PH, Urine 6.5 (5.0-8.0); Protein,Urine Negative (Negative); RBC,Urine 29 /hpf (0-5); Specific Gravity,Urine 1.009 (1.001-1.035); Urobilinogen,Urine <2.0 mg/dL (<2.0); WBC,Urine 21 /hpf (0-5)
--- NOTE | 2020-08-13 01:29 | CT ---
EXAM: CT Abdomen and Pelvis Without Intravenous Contrast CLINICAL HISTORY: ITS.REASON CT Reason: acute lower abdominal pain TECHNIQUE: Axial computed tomography images of the abdomen and pelvis without intravenous contrast. CTDI is 342 mGy and DLP is 6.77 mGy-cm. This CT exam was performed using one or more of the following dose reduction techniques: automated exposure control, adjustment of the mA and/or kV according to patient size, and/or use of iterative reconstruction technique. COMPARISON: September 06, 2016 FINDINGS: Lung bases: Unremarkable. No mass. No consolidation. ABDOMEN: Liver: Unremarkable. Gallbladder and bile ducts: There are multiple 5 mm gallstones in the dependent portion of the gallbladder. No biliary duct dilation nor pericholecystic inflammation is seen. Pancreas: Unremarkable. No ductal dilation. Spleen: The spleen is enlarged measuring 17.5 cm craniocaudad. Adrenals: Unremarkable. No mass. Kidneys and ureters: There is a nonobstructive 5 mm calyceal calculus in the upper pole of the left kidney. No hydronephrosis or ureterolithiasis is seen. Stomach and bowel: Unremarkable. No obstruction. No mucosal thickening. PELVIS: Appendix: The appendix is normal. Bladder: The urinary bladder is completely decompressed. The previously seen wall thickening is no longer visualized. No stones. Reproductive: Unremarkable as visualized. ABDOMEN and PELVIS: Intraperitoneal space: Unremarkable. No free air. No significant fluid collection. Bones/joints: Mild degenerative changes in the lumbar spine. No acute fracture or bone lesion is seen. No dislocation. Soft tissues: Unremarkable. Vasculature: There is a phlebolith inferior to the left ureterovesicular junction, unchanged. No abdominal aortic aneurysm. Lymph nodes: Unremarkable. No enlarged lymph nodes. IMPRESSION: No hydronephrosis or ureterolithiasis is seen. The urinary bladder is completely decompressed. The previously seen urinary bladder wall thickening is no longer visible. Cholelithiasis. No pericholecystic inflammation or biliary duct dilation is seen. Splenomegaly, increased since previous.
[2020-08-13] MEDS ORDERED: LEVOFLOXACIN 500 MG TAB PO STA (01:40)
[2020-08-13] MEDS ORDERED: DOXYCYCLINE 100 MG CAP PO STA (01:51)
[2020-08-13 02:30] VITALS: PULSE 89
== END 2020-08-13 02:38 | disposition home or self-care (01) ==
LOC: EC 23:52
DX: N41.9 Inflammatory disease of prostate, unspecified (principal); I10 Essential (primary) hypertension; N40.0 Benign prostatic hyperplasia without lower urinary tract symptoms; Z79.899 Other long term (current) drug therapy; Z98.890 Other specified postprocedural states
CPT/HCPCS: 99285; 96374; 96376; 36415; 80053; 82150; 83605; 83690; 85025; 81001; 87086; 74176; J1170

== ENCOUNTER → 2020-10-10 | Outpatient (CLI) | payer BC ==
--- NOTE | 2020-10-10 11:01 | XR ---
EXAMINATION TYPE: XR KUB DATE OF EXAM: 10/10/2020 Comparison: 09/06/2016 Clinical History: 55-year-old male N23.0, KUB Findings: Lung bases are clear. No evidence for free intraperitoneal air. No dilated small bowel or air-fluid levels. Scattered mild to moderate stool. Phlebolith within the left side of the pelvis. No suspicious calcification clearly identified. A De Anda catheter is in place. Impression: No evidence for free air or bowel obstruction. Mild to moderate stool burden. Indwelling De Anda cathet er.
== END | disposition home or self-care (01) ==
LOC: RADXRMAIN 10:35
PROVIDERS: ATTEND Urology
DX: R19.5 Other fecal abnormalities (principal)
CPT/HCPCS: 74018

== ENCOUNTER → 2020-11-16 | Outpatient (CLI) | payer BC ==
[2020-11-16 12:25] LABS: Mean Platelet Volume 7.8
[2020-11-16 12:32] LABS: Platelet Count 47 k/uL (150-450)
== END | disposition home or self-care (01) ==
LOC: LABPAT 10:57
PROVIDERS: ATTEND Hospitalist
DX: Z01.818 Encounter for other preprocedural examination (principal); K74.60 Unspecified cirrhosis of liver; D69.6 Thrombocytopenia, unspecified; R94.31 Abnormal electrocardiogram [ECG] [EKG]
CPT/HCPCS: 36415; 85049; 86850; 86900; 86901

== ENCOUNTER 2020-11-17 07:54 | Day surgery (SDC) | payer BC ==
[2020-11-14 11:58] VITALS: BMI 20.1
--- NOTE | 2020-11-16 12:14 | P.GSHP ---
History of Present Illness H&P Date: 11/13/20 Chief Complaint: Incomplete bladder emptying The patient is a 55-year-old white male with a long history of voiding dysfunction. He reported difficulty voiding in 2017 and underwent De Anda catheter placement at that time. Cystoscopy revealed an obstructing high median bar, and a transurethral incision of the prostate (TUIP) was considered. However, this was not performed due to thrombocytopenia. In the meantime, he has taken tamsulosin 0.8 mg daily. He underwent insertion of a De Anda catheter 10/05/2020 due to an inability to void. - Cardiovascular Cardiovascular: Reports high blood pressure - Gastrointestinal Gastrointestinal: Reports constipation - Genitourinary (Male) Genitourinary: Reports nocturia, Reports urinary hesitancy, Reports urinary retention, Denies hematuria - Psychiatric Psychiatric: Reports anxiety, Reports insomnia Past Medical History Past Medical History: Hypertension, Liver Disease, Prostate Disorder, Skin Disorder Additional Past Medical History / Comment(s): CIRRHOSIS, BPH, PSORIASIS, THROMBOCYTOPENIA. , CONSTIPATION. History of Any Multi-Drug Resistant Organisms: None Reported Additional Past Surgical History / Comment(s): wisdom teeth removal with MAC, colonoscopy, liver biopsy Past Anesthesia/Blood Transfusion Reactions: No Reported Reaction Past Psychological History: No Psychological Hx Reported Smoking Status: Never smoker Past Alcohol Use History: None Reported, Rare Past Drug Use History: None Reported - Past Family History Father Family Medical History: Cancer, Diabetes Mellitus Additional Family Medical History / Comment(s): MULTIPLE MYELOMA Medications and Allergies Home Medications Medication Instructions Recorded Confirmed Type lisinopriL [Lisinopril] 40 mg PO DAILY 05/12/15 11/14/20 History Tamsulosin [Flomax] 0.4 mg PO BID 09/04/16 11/14/20 History Levofloxacin [Levaquin] 500 mg PO DAILY 11/14/20 11/14/20 History Allergies Allergy/AdvReac Type Severity Reaction Status Date / Time No Known Allergies Allergy Verified 11/14/20 11:45 Surgical - Exam - General well developed, well nourished, no distress - Respiratory normal respiratory effort, clear to auscultation - Cardiovascular Rhythm: regular Abnormal Heart Sounds: no systolic murmur, no diastolic murmur, no rub, no S3 Gallop, no S4 Gallop, no click, no other - Abdomen Abdomen: soft, non tender, no guarding, no rigid, no rebound - Genitourinary normal penis with no external lesions, testicles non-tender - Rectum Rectum: normal sphincter tone, no masses, other (Prostate mildly enlarged, smooth) - Psychiatric oriented to time, oriented to person, oriented to place, speech is normal, memory intact Assessment and Plan (1) Benign prostatic hyperplasia with lower urinary tract symptoms Status: Acute Code(s): N40.1 - BENIGN PROSTATIC HYPERPLASIA WITH LOWER URINARY TRACT SYMP SNOMED Code(s): 848060662 Plan: Cystoscopy, TURP. The procedure has been reviewed in detail with the patient. He has been made aware of potential risks, which include anesthesia, infection, persistent voiding dysfunction, urinary incontinence, erectile dysfunction, retrograde ejaculation, and vesical neck contracture. He is aware that the procedure carries with it an increased risk of bleeding given his known thrombocytopenia.
[~2020-11-17 07:54] MED LIST changes: +DEXAMETHASONE SOD PHOSPHATE 4 MG/ML 1 ML VIAL IV ONE; +GENTAMICIN 80 MG in SODIUM CHLORIDE 0.9% 100 ML IVPB PRN; +HYDROmorphone 0.5 MG/0.5 ML SYRINGE IVP PRN; -LIDOCAINE 1% 20 ML VIAL (10MG/ML) FOR IV START INTRADERMA PRN; +ONDANSETRON 4 MG/2 ML VIAL IVP ONE
[2020-11-17 09:10] VITALS: RESP 16
[2020-11-17] MEDS ORDERED: LIDOCAINE 1% (10MG/ML) FOR IV START INTRADERMA ONE (09:15)
[2020-11-17] MEDS ORDERED: PROPOFOL 10 MG/ML 20 ML VIAL IV ONE (10:47)
[2020-11-17] MEDS ORDERED: LIDOCAINE 1% INJ 10MG/ML (20 ML MDV) ONE (10:47)
[2020-11-17] MEDS ORDERED: NEOSTIGMINE 1 MG/ML 10 ML VIAL ONE (10:47)
[2020-11-17] MEDS ORDERED: ESMOLOL 100 MG/10 ML VIAL ONE (10:47)
[2020-11-17] MEDS ORDERED: fentaNYL (PF) 50 MCG/ML 2 ML AMP ONE (10:47)
[2020-11-17] MEDS ORDERED: SUCCINYLCHOLINE CHLORIDE 100 MG/5 ML SYR IV ONE (10:47)
[2020-11-17] MEDS ORDERED: GLYCOPYRROLATE 0.2 MG/ML 2 ML VIAL ONE (10:47)
[2020-11-17] MEDS ORDERED: MIDAZOLAM 2 MG/2 ML VIAL ONE (10:47)
[2020-11-17] MEDS ORDERED: ROCURONIUM 10 MG/ML (5 ML VIAL) IV ONE (10:47)
[2020-11-17] MEDS ORDERED: ePHEDrine SULFATE/0.9% NACL/PF 50 MG/5 ML SYRINGE IV ONE (10:47)
[2020-11-17] MEDS ORDERED: PHENYLEPHRINE-0.9% NACL SYG 1,000 MCG/10 ML SYRINGE ONE (10:47)
[2020-11-17] MEDS ORDERED: FUROSEMIDE 10 MG/ML 2 ML VIAL ONE (10:47)
--- NOTE | 2020-11-17 12:02 | P.OP ---
Date of Procedure: 11/17/20 Preoperative Diagnosis: BPH with obstruction Postoperative Diagnosis: Same Procedure(s) Performed: Cystoscopy, transurethral resection of prostate (via button electrode) Anesthesia: RACHEL Surgeon: Galindo Hennessy Estimated Blood Loss (ml): 20 IV fluids (ml): 200 Pathology: none sent Condition: stable Disposition: PACU Indications for Procedure: The patient is a 55-year-old white male with a long history of voiding dysfunction. He reported difficulty voiding in 2017 and underwent De Anda catheter placement at that time. Cystoscopy revealed an obstructing high median bar, and a transurethral incision of the prostate (TUIP) was considered. However, this was not performed due to thrombocytopenia. In the meantime, he has taken tamsulosin 0.8 mg daily. He underwent insertion of a De Anda catheter 10/05/2020 due to an inability to void. Operative Findings: Obstructing high median bar. Description of Procedure: The patient was taken in the operating room and placed in the dorsolithotomy position. The external genitalia was prepped and draped sterilely. The 25- [place] ACMI resectoscope sheath was introduced into the bladder. The bladder was inspected. Both ureteral orifices were of normal anatomic location and configuration, and clear urine effluxed from both. No tumors or foreign bodies were seen. Examination of the prostate revealed partial obstruction due to a high median bar. Using the plasma button electrode, the floor of the prostate was incised extending from the vesicle neck up to the vera montanum. Vaporization was then performed laterally from there, essentially between 4:00 and 8:00. There was no significant lateral lobe enlargement. This left the prostatic fossa open. The prostatic fossa was then carefully examined, and any areas of bleeding were controlled with electrocautery. Adequate hemostasis was attained. The resectoscope was withdrawn into the bulbous urethra. The external urinary sphincter remained intact. The resectoscope was removed, and a n 18 [place] De Anda catheter was placed. The return was essentially clear. The patient tolerated the procedure well was taken to the recovery room in stable condition.
[2020-11-17 12:16] VITALS: TEMP 98.2
[2020-11-17 13:12] VITALS: BP 108/65; PULSE 63
== END 2020-11-17 13:47 | disposition home or self-care (01) ==
LOC: OR 07:54
PROVIDERS: ATTEND Urology
DX: N40.1 Benign prostatic hyperplasia with lower urinary tract symptoms (principal); N13.8 Other obstructive and reflux uropathy; R33.8 Other retention of urine; R35.1 Nocturia; I10 Essential (primary) hypertension; K74.60 Unspecified cirrhosis of liver; L40.9 Psoriasis, unspecified; D69.6 Thrombocytopenia, unspecified; K59.00 Constipation, unspecified; F41.9 Anxiety disorder, unspecified; G47.00 Insomnia, unspecified; R94.31 Abnormal electrocardiogram [ECG] [EKG]; Z98.890 Other specified postprocedural states; Z79.899 Other long term (current) drug therapy; Z80.7 Family history of other malignant neoplasms of lymphoid, hematopoietic and related tissues; Z83.3 Family history of diabetes mellitus
CPT/HCPCS: 52601; J2250; J1100; J1940; J2710; J0690; J2405; J2001; J3010; J1580; J2370; J0330; J2704; 86850; 86900; 86901